=== PATIENT | female | born 1955 | race Caucasian/White ===

== ENCOUNTER 2018-09-25 09:01 | Emergency (ER) | payer OTHER ==
[~2018-09-25] VITALS: Ht 154.9 cm; Wt 82.1 kg
[2018-09-25 09:03] VITALS: Ht 154.9 cm; Wt 82.1 kg
[2018-09-25] MEDS ORDERED: ONDANSETRON 4 MG INJ IV STA (09:23)
[2018-09-25] MEDS ORDERED: SOD CHLORIDE 0.9% 1,000 ML IV STA (09:23)
[2018-09-25] MEDS ORDERED: morphine 4 MG/ML VIAL IV STA (09:23)
[2018-09-25] MEDS ORDERED: KETOROLAC 15 MG INJ IV STA (09:23)
[2018-09-25] MEDS ORDERED: NEBI5TAB9 PO (10:16)
[2018-09-25] MEDS ORDERED: SITA100T11 PO (10:16)
[2018-09-25] MEDS ORDERED: LATA2.5D2 BOTH EYES (10:17)
[2018-09-25] MEDS ORDERED: BRIM15DR7 BOTH EYES (10:17)
[2018-09-25] MEDS ORDERED: FAMO-96 PO (12:29)
--- NOTE | 2018-09-25 12:38 | ERD ---
ER Documentation Chief Complaint Chief Complaint Rt upper quadrant pain x1 day, denies vomitting & diarrhea HPI During the patient's encounter translation services were utilized Language: [place] Source: Video 62-year-old female presents to the emergency room with proximal he 1 day of epigastric and right upper quadrant abdominal pain. No nausea vomiting or diarrhea. She has postprandial symptoms usually worse with caffeine and chocolate. Patient states the pain is moderate and sharp at this time. No shortness of breath, no chest pressure, no exertional symptoms. ROS All systems reviewed and are negative except as per history of present illness. Medications Home Meds Active Scripts Famotidine* (Pepcid*) 20 Mg Tablet, 20 MG PO BID PRN for abdominal pain, #20 TAB Prov:BRIAN ALEMAN MD 09/25/18 Reported Medications Latanoprost (Latanoprost) 2.5 Ml Drops, 1 DROP BOTH EYES QHS, #1 BOTTLE 09/25/18 Brimonidine Tartrate* (Brimonidine Tartrate*) 0.2%-15ML Drop Opht, 1 DROP BOTH EYES Q8, #1 EA 09/25/18 Sitagliptin* (Januvia*) 100 Mg Tablet, 100 MG PO DAILY, #30 TAB 09/25/18 Nebivolol* (Bystolic*) 5 Mg Tab, 5 MG PO DAILY, #30 TAB 09/25/18 Allergies Allergies: Coded Allergies: No Known Allergy (Unverified , 09/25/18) PMhx/Soc History of Surgery: Yes (HYSTERECTOMY) Anesthesia Reaction: No Hx Neurological Disorder: No Hx Respiratory Disorders: No Hx Cardiac Disorders: Yes (HTN, CHOLESTEROL) Hx Alcohol Use: No Hx Substance Use: No Hx Tobacco Use: No Smoking Status: Never smoker FmHx Family History: No diabetes Physical Exam Vitals Vital Signs Date Temp Pulse Resp B/P (MAP) Pulse Ox O2 O2 Flow FiO2 Time Delivery Rate 09/25/18 97.9 89 18 208/94 98 09:03 (132) Physical Exam General: Well developed, well nourished, no acute distress Head: Normocephalic, atraumatic. Eyes: Pupils equally reactive, EOM intact ENT: Moist mucous membranes Neck: Supple, no lymphadenopathy Respiratory: Lungs clear bilaterally, no distress Cardiovascular: RRR, no murmurs, rubs, or gallops Abdominal: Soft, mild tenderness to the epigastrium, negative Lawrence sign, no rebound or guarding, no tenderness to McBurney's point : Deferred MSK: No edema, no unilateral swelling, 5/5 strength Neurologic: Alert and oriented, moving all extremities, normal speech, no focal weakness, no cerebellar signs Skin: No rash Psych: Normal mood Result Diagram: 09/25/18 0937 09/25/18 0937 Results 24 hrs Laboratory Tests Test 09/25/18 09:37 White Blood Count 9.4 10^3/ul Red Blood Count 4.77 10^6/ul Hemoglobin 13.7 g/dl Hematocrit 42.5 % Mean Corpuscular Volume 89.1 fl Mean Corpuscular Hemoglobin 28.7 pg Mean Corpuscular Hemoglobin Concent 32.2 g/dl Red Cell Distribution Width 12.4 % Platelet Count 234 10^3/UL Mean Platelet Volume 11.5 fl Immature Granulocytes % 0.100 % Neutrophils % 64.0 % Lymphocytes % 29.4 % Monocytes % 3.7 % Eosinophils % 2.1 % Basophils % 0.7 % Nucleated Red Blood Cells % 0.0 /100WBC Immature Granulocytes # 0.010 10^3/ul Neutrophils # 6.0 10^3/ul Lymphocytes # 2.8 10^3/ul Monocytes # 0.4 10^3/ul Eosinophils # 0.2 10^3/ul Basophils # 0.1 10^3/ul Nucleated Red Blood Cells # 0.0 10^3/ul Sodium Level 139 mmol/L Potassium Level 4.2 mmol/L Chloride Level 107 mmol/L Carbon Dioxide Level 24 mmol/L Anion Gap 8 Blood Urea Nitrogen 11 mg/dl Creatinine 0.62 mg/dl Est Glomerular Filtrat Rate mL/min > 60 mL/min Glucose Level 178 mg/dl Calcium Level 9.3 mg/dl Total Bilirubin 0.5 mg/dl Direct Bilirubin 0.00 mg/dl Indirect Bilirubin 0.5 mg/dl Aspartate Amino Transf (AST/SGOT) 35 IU/L Alanine Aminotransferase (ALT/SGPT) 36 IU/L Alkaline Phosphatase 101 IU/L Total Protein 7.3 g/dl Albumin 4.0 g/dl Globulin 3.30 g/dl Albumin/Globulin Ratio 1.21 Lipase 165 U/L Current Medications Medications Dose Sig/Bernard Start Time Status Last (Trade) Ordered Route PRN Stop Time Admin Dose Reason Admin Sodium 1,000 ml @ Q1H STAT 09/25/18 DC 09/25/18 Chloride 1,000 mls/hr IV 09:23 09/25/18 09:47 10:22 Morphine 4 mg ONCE STAT 09/25/18 DC 09/25/18 Sulfate IV 09:09/25/18 09:47 (morphine) 09:24 Ondansetron 4 mg ONCE STAT 09/25/18 DC 09/25/18 HCl (Zofran IV 09:09/25/18 09:46 Inj) 09:24 Ketorolac 15 mg ONCE STAT 09/25/18 DC 09/25/18 Tromethamine IV 09:09/25/18 09:47 (Toradol) 09:24 Procedures/MDM EKG, MONITORS, & DIAGNOSTIC IMAGING: US gb IMPRESSION: No evidence of cholelithiasis, cholecystitis or biliary obstruction. Poor visualization of pancreas. LAB INTERPRETATION: I reviewed the laboratory testing and it shows no evidence of acute process MEDICAL DECISION MAKING: Patient presents with epigastric and possibly right upper quadrant abdominal pain is postprandial. Consider possible gastritis versus peptic ulcer disease versus reflux. Also consider hepatobiliary process such as biliary colic. Lower clinical concern for acute cholecystitis. Otherwise abdominal exam is benign. Low concern for appendicitis. ER COURSE: * Patient given IV fluids and pain control with a dramatic improvement of her symptoms. Her laboratory testing and diagnostic imaging is unrevealing. This is again more consistent with likely gastric process. The patient can be safely discharged home with close primary care follow-up. Outpatient GI follow-up likely necessary. CONSULTATION: None DISPOSITION PLAN: The patient does not have an identifiable emergent medical condition that warrants inpatient hospitalization at this time. The patient is deemed safe for discharge with outpatient follow-up. We discussed follow up with the patient's primary care doctor within 24 to 48 hours as needed. We also discussed return to the emergency room for worsening symptoms or worsening condition. Outpatient referral: GI as needed Discharge Medications: Pepcid Departure Diagnosis: Primary Impression: Epigastric abdominal pain Condition: Stable Patient Instructions: Epigastric Pain (Uncertain Cause) Additional Instructions: Call your primary care doctor TOMORROW for an appointment during the next 1 WEEK.Tell the medical secretary that you were referred from this facility.See the doctor sooner or return here if your condition worsens before your appointment time. Raheel nye doctor lindy chaudhari (Referral Sources) MAANA y jose elias ton KRISTIN PARA DENTRO DE TON SEMANA. Dgale a la secretaria que nosotros le instruimos hacer esta kristin.Avise o llame si zimmerman condicin se empeora antes de la kristin. BRIAN ALEMAN MD Sep 25, 2018 12:38
[2018-09-25 14:56] VITALS: BP 125/89; PULSE 70; RESP 16
== END 2018-09-25 14:59 | disposition home or self-care (01) ==
LOC: E/R 09:01
DX: R10.13 Epigastric pain (principal); I10 Essential (primary) hypertension; Z79.84 Long term (current) use of oral hypoglycemic drugs
CPT/HCPCS: 36415; 76705; 80053; 83690; 85025; 96374; 96375; 99285; J1885; J2270; J2405; J7030